=== PATIENT | male | born 1980 | race Caucasian/White ===

== ENCOUNTER 2017-10-17 11:37 | Emergency (ER) | payer BC, OTHER ==
[~2017-10-17] VITALS: Ht 167.6 cm; Wt 72.6 kg
[2017-10-17 11:46] VITALS: BP 117/83
--- NOTE | 2017-10-17 11:56 | NUR ---
Pt taken to bed 10
--- NOTE | 2017-10-17 12:00 | NUR ---
patient arrived to er via private vehicle for c/o cough, body aches x 2 days. patient is alert and oriented x 4. respirations are even and unlabored. no dyspnea observed. during assessment, patient observed to have a coughing spell episode. patient states cold sweats/chills began last evening, none presently. patient denies any n,v,d. awaiting md er evaluation
--- NOTE | 2017-10-17 12:03 | NUR ---
Dr. Nguyễn in room for exam.
--- NOTE | 2017-10-17 12:23 | NUR ---
Patient discharged with v/s stable. Written and verbal after care instructions given and explained. Patient alert, oriented and verbalized understanding of instructions. Ambulatory with steady gait. All questions addressed prior to discharge. ID band removed. Patient advised to follow up with PMD. Rx of Zofran and Tamiflu given. Patient educated on indication of medication including possible reaction and side effects. Opportunity to ask questions provided and answered.
== END 2017-10-17 12:23 | disposition home or self-care (01) ==
LOC: MED 11:37
DX: B34.9 Viral infection, unspecified (principal); G43.909 Migraine, unspecified, not intractable, without status migrainosus; Z91.018 Allergy to other foods
CPT/HCPCS: 36415; 87804; 99284

== ENCOUNTER 2018-06-10 14:17 | Emergency (ER) | payer BC ==
[~2018-06-10] VITALS: Ht 165.1 cm; Wt 69.2 kg
[2018-06-10 14:31] VITALS: BP 102/45
--- NOTE | 2018-06-10 14:36 | NUR ---
PATIENT AMBULATED TO BED 4
[2018-06-10 14:40] VITALS: BP 102/45
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
--- NOTE | 2018-06-10 14:45 | NUR ---
X RAY AT BEDSIDE.
[2018-06-10] MEDS ORDERED: IBUPROFEN 800 MG TAB PO ONE (18:10)
--- NOTE | 2018-06-10 18:18 | NUR ---
PATIENT LEFT WITHOUT BEING SEEN BY . NO FURTHER CARE PROVIDED FOR PATIENT.
== END 2018-06-10 18:17 | disposition left against medical advice (07) ==
LOC: MED 14:17
DX: M79.645 Pain in left finger(s) (principal); W22.8XXA Striking against or struck by other objects, initial encounter; Y93.89 Activity, other specified; Y92.89 Other specified places as the place of occurrence of the external cause; Y99.8 Other external cause status
CPT/HCPCS: 73140; 99281; Q0092